=== PATIENT | female | born 1985 | race Caucasian/White ===

== ENCOUNTER 2019-08-31 18:58 | Emergency (ER) | payer MEDICAID ==
[~2019-08-31] VITALS: Ht 167.6 cm; Wt 53.5 kg
[~2019-08-31 18:58] MED LIST: OMEPRAZOLE 20 M20 M1 PO; PROZAC20 M1 PO
[2019-08-31 19:31] LABS: URINE BILIRUBIN NEGATIVE (Negative); URINE BLOOD 1+ (Negative); URINE CLARITY CLEAR; URINE COLOR YELLOW; URINE GLUCOSE-RANDOM NEGATIVE (Negative); URINE KETONES NEGATIVE (Negative); URINE LEUKOCYTES-REFLEX NEGATIVE (Negative); URINE NITRITE-REFLEX NEGATIVE (Negative); URINE PROTEIN NEGATIVE (Negative); URINE SPECIFIC GRAVITY <= 1.005 (1.005-1.030); URINE UROBILINOGEN 0.2 E.U./dl (0.2-1.0)
[2019-08-31 20:12] LABS: BACTERIA-REFLEX 1-9 Few /HPF (None Seen); CASTS None Seen /LPF (None Seen); CRYSTALS None Seen /LPF (None Seen); SQUAMOUS 0-3 Few /LPF (0-3); URINE RBC 0-2 Rare /HPF (0-2); URINE WBC-REFLEX 0-5 Rare /HPF (0-5)
[2019-08-31 20:18] LABS: ABSOLUTE BASOPHILS 0.1 thou/uL (0.0-0.2); ABSOLUTE LYMPHOCYTES 4.5 thou/uL (0.8-5.3); ABSOLUTE NEUTROPHILS 13.9 thou/uL (1.6-8.1); BASOPHILS 0.4 %; EOSINOPHILS 0.2 %; HEMATOCRIT 36.3 % (37.0-47.0); HEMOGLOBIN 12.6 gm/dL (12.0-15.0); MCHC 34.7 g/dL (28.0-37.0); MCV 94.9 fL (80.0-100.0); MONOCYTES 5.1 %; MPV 8.3 fl. (7.2-11.1); NUCLEATED RBCS 0 /100WBC; PLATELET COUNT* 249 thou/uL (150-400); POLYS 71.3 %; RBC 3.82 mil/uL (4.20-5.00); RDW-CV 13.7 % (10.5-14.5); WBC 19.5 thou/uL (4.0-11.0)
[2019-08-31 20:28] LABS: CALCIUM 8.7 mg/dL (8.5-10.1); CREATININE 0.7 mg/dL (0.6-1.3); POTASSIUM 3.4 mmol/L (3.5-5.1)
[2019-08-31 20:39] LABS: ALBUMIN 3.9 g/dL (3.4-5.0); TOTAL BILIRUBIN 0.7 mg/dL (<0.1-1.0); TOTAL PROTEIN 7.7 g/dL (6.4-8.2)
[2019-08-31 20:58] LABS: INFLUENZA A ANTIGEN Negative (Negative); INFLUENZA B ANTIGEN Negative (Negative)
[2019-08-31] MEDS ORDERED: VENTOLIN HFA 1818 GM INH (21:40)
[2019-08-31] MEDS ORDERED: DIFLUCAN150 M1 PO (21:40)
[2019-08-31] MEDS ORDERED: CEFDINIR300 MG PO (21:40)
[2019-08-31 21:55] VITALS: BP 118/65
--- NOTE | 2019-09-01 09:55 | EKG ---
[place] [address] ELECTROCARDIOGRAM REPORT Name: JETHRO BRAR Room: [facility]#: [id number] Admission: 08/31/19 Attend Phys: Discharge: 08/31/19 Date of : 81 Date of Service: 08/31/192010 Report #: [id number] THIS REPORT FOR: //name// [facility] ED Test Date: 2019-08-31 Test Time: 20:11:16 Pat Name: JETHRO BRAR Department: Room: Gender: F Rat Breeder: [place] : 1985 Requested By: Sarah Cisneros Order Number: [id number] : Jose Franks Measurements Intervals Keno Rate: 103 P: 76 FL: 181 QRS: 67 QRSD: 79 T: 65 QT: 340 QTc: 445 Interpretive Statements Sinus tachycardia Compared to ECG 08/17/2019 01:19:53 Sinus rhythm no longer present Electronically Signed On 09-01-2019 9:53:40 CDT by Jose Franks [email or web address] <ELECTRONICALLY SIGNED> By: Jose Franks MD, [facility] 09/01/19 0953 10 10 Jose Franks MD, FAC /EPI
== END 2019-08-31 21:55 | disposition home or self-care (01) ==
LOC: M.ERS 18:58
PROVIDERS: Nurse Practitioner Family
DX: J06.9 Acute upper respiratory infection, unspecified (principal); R07.89 Other chest pain; R11.2 Nausea with vomiting, unspecified; F31.9 Bipolar disorder, unspecified; F41.9 Anxiety disorder, unspecified; F17.210 Nicotine dependence, cigarettes, uncomplicated; Z88.8 Allergy status to other drugs, medicaments and biological substances